=== PATIENT | male | born 1975 | race African-American/Black ===

== ENCOUNTER 2021-09-14 09:48 | Day surgery (SDC) | payer OTHER ==
[2021-09-08 11:37] VITALS: BMI 25.8
[2021-09-14 10:35] VITALS: TEMP 97.8
[2021-09-14] MEDS ORDERED: LIDOCAINE HCL 2% (20ML MULTI-DOSE VIAL) ONE (11:26)
[2021-09-14] MEDS ORDERED: MIDAZOLAM HCL 2 MG/2 ML SINGLE DOSE VIAL ONE (12:07)
[2021-09-14] MEDS ORDERED: HYDROmorphone HCL/PF 1 MG/ML VIAL ONE (12:16)
[2021-09-14] MEDS ORDERED: BUPIVACAINE HCL/PF 0.25% (2.5MG/ML) 10 ML VIAL ONE (12:29)
[2021-09-14] MEDS ORDERED: PROPOFOL 20 ML ONE ×2 (12:36→12:46)
[2021-09-14] MEDS ORDERED: BUPIVACAINE HCL/PF 0.25% (2.5MG/ML) 10 ML VIAL IJ ONE (12:54)
[2021-09-14] MEDS ORDERED: PROMETHAZINE HCL 25 MG/1 ML VIAL IVPUSH PRN (13:16)
[2021-09-14] MEDS ORDERED: LACTATED RINGERS SOLUTION 1,000 ML IV SCH (13:30)
[2021-09-14 15:08] VITALS: BP 128/67; PULSE 61
== END 2021-09-14 15:05 | disposition home or self-care (01) ==
LOC: FASU 09:48
PROVIDERS: ATTEND Orthopaedic Surgery Hand Surgery
PROC: 0LB60ZZ Excision of Left Lower Arm and Wrist Tendon, Open Approach (ICD-10-PCS; 2021-09-14)
PROC: 0LQ80ZZ Repair Left Hand Tendon, Open Approach (ICD-10-PCS; principal; 2021-09-14 11:30)
DX: M67.844 Other specified disorders of tendon, left hand (principal); M67.432 Ganglion, left wrist
CPT/HCPCS: 94760